=== PATIENT | female | born 1990 | race Caucasian/White ===

== ENCOUNTER 2023-02-24 17:58 | Inpatient (IN) | payer BC ==
[2023-02-24] MEDS ORDERED: Sodium Chloride 0.9% 10 ML Syringe FLUSH PRN (19:20)
[2023-02-24] MEDS ORDERED: Nalbuphine 10 MG/0.5 ML Syringe IVPUSH PRN (19:20)
[2023-02-24] MEDS ORDERED: Oxytocin/Lactated Ringers 10 UNIT/1,000 ML BAG IV SCH ×2 (19:30)
[2023-02-24] MEDS ORDERED: Misoprostol 25 MCG (1/4 of 100 MCG) Tab VAG ONE (20:02)
[2023-02-24] MEDS: Misoprostol 25 MCG (1/4 of 100 MCG) Tab VAG SCH (23:57)
[2023-02-25] MEDS ORDERED: Bupivacaine 0.25% 10 ML SDV ONE
[2023-02-25] MEDS: Misoprostol 25 MCG (1/4 of 100 MCG) Tab VAG SCH ×2 (04:17→11:49)
[2023-02-25] MEDS: Sodium Chloride 0.9% 10 ML Syringe FLUSH SCH ×2 (04:19→11:49)
[2023-02-25] MEDS: Lactated Ringers 1,000 ML IV SCH ×2 (07:51→09:33)
[2023-02-25] MEDS ORDERED: fentaNYL 100 MCG/2 ML SDV EPIDUR PRN (09:38)
[2023-02-25] MEDS ORDERED: Bupivacaine/fentaNYL/NS 100 ML Bag EPIDUR PRN (09:38)
[2023-02-25] MEDS ORDERED: diphenhydrAMINE 50 MG/ML SDV IVPUSH PRN (09:38)
[2023-02-25] MEDS: ePHEDrine 50 MG/ML SDV IVPUSH PRN ×2 (12:19→12:25)
[2023-02-25] MEDS ORDERED: Lidocaine 1% 50 ML MDV ONE (18:10)
[2023-02-25] MEDS ORDERED: Hydrocortisone Acetate 25 MG Supp RECTAL PRN (19:56)
[2023-02-25] MEDS ORDERED: Oxytocin/Lactated Ringers 10 UNIT/1,000 ML BAG IV SCH (19:56)
[2023-02-25] MEDS ORDERED: Magnesium Hydroxide 400 MG/5 ML Susp 30 ML Cup PO PRN (19:56)
[2023-02-25] MEDS ORDERED: Benzocaine/Menthol 20%-0.5% Spray 78 GM Cannister TOP PRN (19:56)
[2023-02-25] MEDS ORDERED: Witch Hazel Medicated Pads 40/Jar TOP PRN (19:56)
[2023-02-25] MEDS ORDERED: Acetaminophen 325 MG Tab PO PRN (19:56)
[2023-02-25] MEDS: Docusate Sodium 100 MG Cap PO PRN (20:04)
[2023-02-25] MEDS: Ibuprofen 600 MG Tab PO PRN (20:05)
[2023-02-26] MEDS: Docusate Sodium 100 MG Cap PO PRN (07:58)
[2023-02-26] MEDS: Prenatal Multivitamin with Calcium/Folic Acid/Iron Tab PO SCH ×2 (07:58→19:23)
[2023-02-26] MEDS: Ibuprofen 600 MG Tab PO PRN ×2 (08:11→20:42)
[2023-02-27] MEDS: Ibuprofen 600 MG Tab PO PRN (08:15)
[2023-02-27] MEDS: Prenatal Multivitamin with Calcium/Folic Acid/Iron Tab PO SCH (08:15)
== END 2023-02-27 12:35 | disposition home or self-care (01) | DRG 560 ==
LOC: JD.OB 17:58 → OBSVTOIN 02-25 17:58 → JD.OB 02-25 17:59
PROVIDERS: ADMIT Obstetrics & Gynecology; ATTEND Obstetrics & Gynecology
PROC: 10E0XZZ Delivery of Products of Conception, External Approach (ICD-10-PCS; principal; 2023-02-25)
PROC: 10907ZC Drainage of Amniotic Fluid, Therapeutic from Products of Conception, Via Natural or Artificial Opening (ICD-10-PCS; 2023-02-25)
PROC: 0KQM0ZZ Repair Perineum Muscle, Open Approach (ICD-10-PCS; 2023-02-25)
PROC: 0UQMXZZ Repair Vulva, External Approach (ICD-10-PCS; 2023-02-25)
PROC: 3E0P7VZ Introduction of Hormone into Female Reproductive, Via Natural or Artificial Opening (ICD-10-PCS; 2023-02-25)
PROC: 3E0R3BZ Introduction of Anesthetic Agent into Spinal Canal, Percutaneous Approach (ICD-10-PCS; 2023-02-25)
PROC: 00HU33Z Insertion of Infusion Device into Spinal Canal, Percutaneous Approach (ICD-10-PCS; 2023-02-25)
PROC: 0U7C7ZZ Dilation of Cervix, Via Natural or Artificial Opening (ICD-10-PCS; 2023-02-25)
DX: O48.0 Post-term pregnancy (principal); O99.52 Diseases of the respiratory system complicating childbirth; O99.02 Anemia complicating childbirth; D64.9 Anemia, unspecified; J45.909 Unspecified asthma, uncomplicated; O77.0 Labor and delivery complicated by meconium in amniotic fluid; O70.1 Second degree perineal laceration during delivery; O71.82 Other specified trauma to perineum and vulva; Z37.0 Single live birth; Z3A.40 40 weeks gestation of pregnancy; Z87.891 Personal history of nicotine dependence
CPT/HCPCS: 01967; 36415; 51702; 59025; 59200; 59409; 85025; 86592; A9270-GY; C1726; J2001; J2590; J3010; J3490; J7120